=== PATIENT | female | born 1970 | race Caucasian/White ===

== ENCOUNTER 2025-01-12 09:34 | Outpatient (CLI) | payer MEDICARE, OTHER, SELFPAY ==
--- NOTE | 2025-01-12 09:30 | CT_ITS ---
FINAL REPORT CLINICAL HISTORY: 3 month f/u COMPARISON: 10/12/2024 FINDINGS: CT CHEST without contrast COMPARISON: 10/12/2024. TECHNIQUE: Axial CT without contrast This study was performed with techniques to keep radiation doses as low as reasonably achievable, (ALARA). Individualized dose reduction techniques using automated exposure control or adjustment of mA and/or kV according to the patient's size were employed. FINDINGS: There is an irregular nodule in the left apex, measuring 7 mm in size, best seen on image #72 of series 3, stable. There are coarse lower lobe linear densities present, consistent with scar, greater on the left than on the right. No new pulmonary lesions are identified. The patient is post CABG, and there is no sternal effusion present at this time. No pleural or pericardial effusion is seen . No hilar or mediastinal adenopathy or mass lesion is present . IMPRESSION: 1. Irregular nodule in the left apex, 7 mm in size, stable. 2. Coarse lower lobe linear densities consistent with scar, greater on the left than on the right. 3. 6-month follow-up chest CT is recommended. This study was performed using automated techniques to achieve radiation exposure as low as reasonably achievable Reviewed, Interpreted and Dictated by Maldonado Bates MD Transcribed by Janeen Zavaleta Authenticated and [facility]
--- OUTSIDE RECORDS SUMMARY | 2025-01-12 09:40 | XMS_ITS | Clinical Summary ---
Author Organization Healthcare Address [facility] [place] [address] Care Team Providers Care [employer] Name Role Phone Unavailable Primary Care Provider Unavailabl e Family History Medical History Relation Name Comments Breast cancer Mother COPD Mother Relation Name Status Comments Mother Social History Tobacco Use Types Packs/Day Years Used Date Smoking Tobacco: Every Day Alcohol Use Standard Drinks/Week Comments No 0 (1 standard drink = 0.6 oz pur e alcohol) Comments Unknown Sex and Gender Information Value Date Recorded Sex Assigned at Not on file Legal Sex Female 7:50 PM EDT Gender Identity Not on file Sexual Orientation Not on file Last Filed Vital Signs Vital Sign Reading Time Taken Comments Blood Pressure - - Pulse - - Temperature - - Respiratory Rate - - Oxygen Saturation - - Inhaled Oxygen Concentration - - Weight 66.4 kg (146 lb 5.1 oz) 11/14/2015 11:45 AM EDT Height 161.3 cm (5' 3.5 ) 11/14/2015 11:45 AM ED T Body Mass Index 25.51 11/14/2015 11:45 AM EDT Plan of Treatment Not on file
[2025-01-12 11:05] VITALS: PULSE 60; PULSE 62
[2025-01-12] MEDS: ALBUTEROL 0.083% 2.5 MG/3 ML NEB IH (11:05)
== END 2025-01-12 23:59 | disposition home or self-care (01) ==
PROVIDERS: PCP Nurse Practitioner Family; Visit Provider Internal Medicine Pulmonary Disease
DX: R06.09 Other forms of dyspnea (principal); R91.1 Solitary pulmonary nodule; Z95.1 Presence of aortocoronary bypass graft
CPT/HCPCS: 71250; 94060; 94618; 94640; 94726; 94729